=== PATIENT | female | born 1965 | race African-American/Black ===

== ENCOUNTER 2022-07-21 16:55 | Emergency (ER) | payer BC, SELFPAY ==
--- NOTE | ~2022-07-21 | CT_ITS ---
EXAMINATION: CT abdomen pelvis w con DATE: 07/21/2022 20:05 INDICATION: Left groin pain. TECHNIQUE: Computed tomography (CT) of the abdomen and pelvis was performed with 100 mL Omnipaque 350 intravenous contrast. Automated exposure control and iterative reconstruction technique were employe d. The dose-length product was 1238.03 mGy-cm. COMPARISON: None. FINDINGS: The visualized portions of the lung bases demonstrate mild atelectasis. No pleural effusion . The heart size is normal. No pericardial effusion. The liver, gallbladder, spleen, pancreas, adrena l glands, and left kidney are normal. There are cysts in right kidney measuring up to 7 mm. There are no dilated loops of bowel. The appendix is normal. There are no pathologically enlarged lymph nodes. There is no free intraperitoneal fluid. There are changes of posterior fusion procedure from L4 to S 1. There is mild osteoarthritis of the hips. IMPRESSION: 1. Mild osteoarthritis of the hips. 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
[2022-07-21 17:13] VITALS: BP 148/96; PULSE 75; RESP 16; TEMP 36.6; O2SAT 100
[2022-07-21 17:42] LABS: Basophils Percent Auto 0.3 % (0.2-1.2); Eosinophils Absolute Auto 0.3 K/mm3 (0-0.3); Eosinophils Percent Auto 2.3 % (0-4.4); Hematocrit 38.5 % (37.0-47.0); Immature Granulocyte Absolute 0.03 K/mm3 (0.00-0.031); Immature Granulocyte Percent A 0.3 % (0-0.5); Lymphocytes Percent Auto 38.3 % (18.3-44.2); Mean Corpuscular HGB Conc 31.2 g/dl (32-36); Mean Corpuscular Hemoglobin 26.8 pg (26-34); Mean Corpuscular Volume 85.9 fl (80-100); Mean Platelet Volume 9.5 fl (7.4-10.4); Monocytes Absolute Auto 0.5 K/mm3 (0.1-0.6); Monocytes Percent Auto 4.6 % (2.6-8.5); Neutrophils Absolute Auto 6.2 K/mm3 (1.3-6.7); Neutrophils Percent Auto 54.2 % (45.5-73.1); Platelet Count Result 295 k/mm3 (150-375); Red Blood Count 4.48 M/mm3 (4.2-5.4); Red Cell Distribution Width 14.9 % (11.5-14.5); White Blood Count 11.5 K/mm3 (4.5-10.0)
[2022-07-21 17:45] LABS: Appearance Urine Clear (Clear); Bilirubin Urine Negative (Negative); Blood Urine 1+ (Negative); Color Urine Yellow (Yellow); Glucose Urine UA Negative (Negative); Ketones Urine Trace mg/dL (Negative); Leukocyte Esterase Ur Negative LEU/UL (Negative); Nitrate Urine Negative (Negative); Protein Urine Trace mg/dL (Negative); Specific Grav Ur 1.025 (1.001-1.035); Urobilinogen Urine 0.2 mg/dL (<2.0); pH Urine 5.5 (5.0-9.0)
[2022-07-21 17:51] LABS: Bacteria Urine Trace /hpf; Calcium Oxalate Crystals Urine Many /hpf; Mucus Urine Few /lpf; RBC Urine 21-50 /hpf (0-2); Squamous Epithelial Cell Urine Many /hpf (Few)
[2022-07-21 17:53] LABS: Alanine Aminotransferase 16 U/L (6-35); Albumin Level 4.4 g/dL (3.5-5.1); Alkaline Phosphatase 111 U/L (38-126); Anion Gap 6 mmol/L (8-16); Aspartate Amino Transferase 23 U/L (14-36); Bilirubin,Total 0.3 mg/dL (0.2-1.3); Blood Urea Nitrogen 10 mg/dL (7-17); Calcium 9.1 mg/dL (8.4-10.2); Carbon Dioxide 27 mmol/L (22-30); Chloride 105 mmol/L (98-107); Estimated CRCL calculation 68 ml/min; Estimated Glomerular Filt Rate > 60; Glucose 103 mg/dL (65-110); Lipase 46 U/L (23-300); Potassium 3.4 mmol/L (3.4-5.0); Sodium 138 mmol/L (137-145)
[2022-07-21 17:58] LABS: Add Urine Microscopic? YES
[2022-07-21 18:31] VITALS: BP 128/84; PULSE 90; RESP 18; O2SAT 100
--- NOTE | 2022-07-21 18:39 | ED.ABDPAIN ---
HPI - Abdominal Pain General Chief Complaint: Abdominal Pain Stated Complaint: LLQ ABD PAIN Time Seen by Provider: 07/21/22 18:39 Source: patient and RN notes reviewed Limitations: no limitations History of Present Illness HPI narrative: Patient is 57 years old -[place] female came to the emergency room by private car complaining of left lower quadrant left groin left hip pain started last night, throbbing, worse with movement, better laying on the right side. She denies any fevers, chills, nausea, vomiting, trauma or new physical activity . Patient denies having similar symptoms in the past.. She denies any vaginal bleeding or discharge or urinary symptoms. Related Data Allergies Allergy/AdvReac Type Severity Reaction Status Date / Time acetaminophen Allergy Unknown Verified 07/21/22 18:34 [From Darvocet-N] propoxyphene Allergy Unknown Verified 07/21/22 18:34 [From Darvocet-N] Review of Systems Review of Systems: All systems reviewed & are unremarkable except as noted in HPI and below Exam Narrative: General appearance: Well-developed, well-nourished Skin: Normal color Head: Normocephalic, nontraumatic Eyes: Clear conjunctiva ENT: Oropharynx normal, ears normal, nose normal Neck: Supple, nontender Chest and respiratory: Airway patent, no respiratory distress, no accessory muscle use Heart: Regular rate/rhythm Abdomen: Soft, nontender, no organomegaly, quiet bowel sounds Vascular: Normal peripheral pulses, normal capillary refill. Musculoskeletal: Limited range of motion of left hip, no bruises, no swelling, no rash, no lymphadenopathy. Neurologic: Alert and oriented ?3, REJECT OPENER is normal as tested, no gross motor deficit Course Vital Signs Vital signs: Vital Signs Temperature 36.6 C 07/21/22 17:13 Pulse Rate 75 07/21/22 17:13 Respiratory Rate 16 07/21/22 17:13 Blood Pressure 148/96 H 07/21/22 17:13 Pulse Oximetry 100 07/21/22 17:13 Oxygen Delivery Room Air 07/21/22 17:13 Temperature 36.6 C 07/21/22 17:13 Pulse Rate 75 07/21/22 17:13 Respiratory Rate 16 07/21/22 17:13 Blood Pressure 148/96 H 07/21/22 17:13 Pulse Oximetry 100 07/21/22 17:13 Oxygen Delivery Room Air 07/21/22 17:13 MDM - Abdominal Pain MDM Narrative Medical decision making narrative: Patient presents with pain at the left lower quadrant left groin left hip started last night patient is pointing to her left groin area. No trauma, better if she lay down on the right side of her body. Physical examination showed slight limited range of motion of the left hip because of pain, otherwise no bruises, no swelling, no lymphadenopathy, no rash no localized tenderness. Differential diagnosis: Musculoskeletal, kidney stone, urinary tract infection, arthritis, diverticulitis. Labs, CRP, sed rate, UA, CT abdomen pelvis and left hip with contrast ordered. Patient received 1 L of normal saline, 0.5 mg of Dilaudid, 4 mg of Zofran with good improvement. Blood work-up showed leukocytosis of 11.7, possible secondary to infection versus reactive leukocytosis, UA showed hematuria. CT abdomen and pelvis with left hip showed no acute abnormality. My plan to discharge patient on Cipro, naproxen and Flexeril for possible urinary tract infection versus musculoskeletal pain. The pt was discharged to home.the pt,s condition upon discharge was fair,education was provided to the pt in reference to the final impression,discharge study results,treatment,prognosis and need for follow up . Differential Diagnosis Differential diagnosis: Likely abdominal pain, calculus of kidney, constipation, diverticulitis and other (Nontraumatic left hip pain) Lab Jamie
[2022-07-21] MEDS: HYDROmorphone HCL INJ (*CRX) 1 MG/ML SYR 0.5 MG IV PUSH (19:42)
[2022-07-21] MEDS: ONDANSETRON INJ 4 MG/2 ML VIAL IV PUSH (19:42)
--- NOTE | 2022-07-21 19:55 | PC.NURSE ---
Pt to ct scan
[2022-07-21 20:14] LABS: CRP 0.8 mg/dL (<1.0)
[2022-07-21 21:14] VITALS: BP 121/62; PULSE 83; RESP 18; O2SAT 100
[2022-07-21 21:16] LABS: Erythrocyte Sedimentation Rate 35 mm/hr (0-20)
== END 2022-07-21 21:15 | disposition home or self-care (01) ==
PROVIDERS: Emergency Medicine; Emergency Provider Emergency Medicine
DX: D72.829 Elevated white blood cell count, unspecified (principal); R31.9 Hematuria, unspecified; M16.0 Bilateral primary osteoarthritis of hip
CPT/HCPCS: 36415; 74177; 80053; 81001; 83690; 85025; 85652; 86140; 87086; 87088; 96374; 96375; 99284; J1170; J2405; Q9967

== ENCOUNTER 2023-07-16 01:35 | Day surgery (SDC) | payer BC, SELFPAY ==
[2023-07-10 12:28] VITALS: BMI 40.1
--- NOTE | 2023-07-16 06:45 | WPDANESEPPF ---
Anes - Initial Pre Proc Eval Procedure: Operation Date: 07/16/23 08:30 Proposed Procedures p Screening Colonoscopy - Mario Murray MD Date/Time: 07/16/23 06:45 Surgeon: Mario Murray MD Pre Op Diagnosis: neoplasm screening Patient Data Age: 58 Gender: F Height: 1.63 m Weight: 106.25 kg Allergies Allergy/AdvReac Type Severity Reaction Status Date / Time propoxyphene Allergy Unknown Verified 07/16/23 07:20 [From [facility]] Home Medications Medication Instructions Recorded Confirmed Type albuterol sulfate 90 mcg/actuation 2 puff inhalation Q4-6H PRN 07/10/23 07/16/23 History aerosol inhaler Shortness Of Breath amlodipine 10 mg-olmesartan 40 mg 1 tablet PO DAILY 07/10/23 07/16/23 History tablet budesonide-formoterol HFA 160 2 puff inhalation BID 07/10/23 07/16/23 History mcg-4.5 mcg/actuation aerosol inhaler (Symbicort) bupropion HCl 150 mg 24 hr tablet, 150 mg PO DAILY 07/10/23 07/16/23 History extended release duloxetine 30 mg capsule,delayed 30 mg PO BID 07/10/23 07/16/23 History release hydroxyzine HCl 25 mg tablet 25 mg PO HS PRN Insomnia 07/10/23 07/16/23 History levothyroxine 50 mcg tablet 50 mcg PO DAILY 07/10/23 07/16/23 History montelukast 10 mg tablet 10 mg PO DAILY 07/10/23 07/16/23 History ondansetron HCl 4 mg tablet 4 mg PO Q8H PRN Nausea 07/10/23 07/16/23 History pregabalin 50 mg capsule 50 mg PO Q8H PRN ARTHRITIS 07/10/23 07/16/23 History rimegepant 75 mg disintegrating 75 mg PO DAILY PRN Migraine 07/10/23 07/16/23 History tablet (Nurtec ODT) Headache rizatriptan 10 mg disintegrating 10 mg PO PRN PRN MIGRAINES 07/10/23 07/16/23 History tablet rosuvastatin 20 mg tablet 20 mg PO DAILY 07/10/23 07/16/23 History tizanidine 2 mg tablet 2 mg PO Q8H PRN Muscle Pain 07/10/23 07/16/23 History Patient hx anesthesia problems: none Family hx anesthesia problems: none Results Review: All pre-operative results and documents have been reviewed as part of the pre-operative evaluation. [facility] Past Medical History Medical History (Updated 07/16/23 @ 06:46 by Wellington Lizama DO) Anxiety Asthma Depression Diabetes type 2, controlled Hyperlipidemia Hypertension Hypothyroidism FAVIOLA (obstructive sleep apnea) Social History Social History Smoking status: Never smoker Alcohol intake: never Substance use: never Substance use type: does not use Living arrangements: with family Spiritual care concerns: No Anes - Eval Final PreProcedure Day of Procedure 07/16/23 06:45 Patient weight: morbidly obese Heart: regular rate and rhythm Lungs: clear to auscultation Airway: Mallampati scale class II Neurological: alert and oriented Last oral intake: >/= 8 hours ASA classification: III Emergent: no Anesthetic plan: proceed Anesthesia type and monitoring: general GIVS and standard monitoring Results Review: All pre-operative results and documents have been reviewed as part of the pre-operative evaluation. Informed Consent: The patient's anesthetic plan and its attendant risks and benefits were discussed with the patient/family/POA. Questions were solicited and answers provided to the satisfaction of the patient/family/POA.
[2023-07-16 07:21] VITALS: BP 145/84; PULSE 96; RESP 17; TEMP 36.2; O2SAT 99; BMI 39.0
[2023-07-16] MEDS: LACTATED RINGERS 1,000 ML 150 ML IV CONT (07:38)
--- NOTE | 2023-07-16 08:19 | PM.HPGS ---
History of Present Illness History of Present Illness Consent: Risks, benefits, and alternatives have been discussed and questions answered. Patient agrees to proceed with procedure. Chief complaint: neoplasm screening Narrative: Roxie Bedolla is a 58 year old female here for screening colonoscopy, had one about 10 years ago Review of Systems Constitutional: Constitutional: Denies headache(s) and Denies weakness Eyes: Eyes: Denies blurry vision ENT: Reports Normal hearing present, Denies headache(s) and Denies neck pain Cardiovascular: Cardiovascular: Denies chest pain and Denies dyspnea Respiratory: Respiratory: Denies dyspnea Gastrointestinal: Gastrointestinal: Reports no additional gastrointestinal complaints Genitourinary: Genitourinary: Denies dysuria Musculoskeletal: Musculoskeletal: Denies neck pain Integumentary/Breasts: Skin/Breast: Denies dry skin Neurologic: Reports Normal hearing present, Denies headache(s) and Denies weakness Psychiatric: Psychiatric: Denies anxiety Endocrine: Endocrine: Denies change in body appearance Hematologic/Lymphatic: Hematologic/Lymphatic: Denies easy bleeding Allergic/Immunologic: Allergic/Immunologic: Denies urticaria PMFSH Past Medical History Medical History (Updated 07/16/23 @ 08:19 by Mario Murray MD) Anxiety Asthma Colon cancer screening Depression Diabetes type 2, controlled Hyperlipidemia Hypertension Hypothyroidism FAVIOLA (obstructive sleep apnea) Social History Social History Smoking status: Never smoker Alcohol intake: never Substance use: never Substance use type: does not use Living arrangements: with family Spiritual care concerns: No Meds Home Medications and Allergies Home Medications Medication Instructions Recorded Confirmed Type albuterol sulfate 90 mcg/actuation 2 puff inhalation Q4-6H PRN 07/10/23 07/16/23 History aerosol inhaler Shortness Of Breath amlodipine 10 mg-olmesartan 40 mg 1 tablet PO DAILY 07/10/23 07/16/23 History tablet budesonide-formoterol HFA 160 2 puff inhalation BID 07/10/23 07/16/23 History mcg-4.5 mcg/actuation aerosol inhaler (Symbicort) bupropion HCl 150 mg 24 hr tablet, 150 mg PO DAILY 07/10/23 07/16/23 History extended release duloxetine 30 mg capsule,delayed 30 mg PO BID 07/10/23 07/16/23 History release hydroxyzine HCl 25 mg tablet 25 mg PO HS PRN Insomnia 07/10/23 07/16/23 History levothyroxine 50 mcg tablet 50 mcg PO DAILY 07/10/23 07/16/23 History montelukast 10 mg tablet 10 mg PO DAILY 07/10/23 07/16/23 History ondansetron HCl 4 mg tablet 4 mg PO Q8H PRN Nausea 07/10/23 07/16/23 History pregabalin 50 mg capsule 50 mg PO Q8H PRN ARTHRITIS 07/10/23 07/16/23 History rimegepant 75 mg disintegrating 75 mg PO DAILY PRN Migraine 07/10/23 07/16/23 History tablet (Nurtec ODT) Headache rizatriptan 10 mg disintegrating 10 mg PO PRN PRN MIGRAINES 07/10/23 07/16/23 History tablet rosuvastatin 20 mg tablet 20 mg PO DAILY 07/10/23 07/16/23 History tizanidine 2 mg tablet 2 mg PO Q8H PRN Muscle Pain 07/10/23 07/16/23 History Allergies Allergy/AdvReac Type Severity Reaction Status Date / Time propoxyphene Allergy Unknown Verified 07/16/23 07:20 [From [facility]] Vital Signs Vital Signs - 24 hr 07/16/23 07:21 Temperature 97.1 F L Pulse Rate 96 Respiratory Rate 17 Blood Pressure 145/84 H Pulse Oximetry 99 Oxygen Delivery Room Air Exam Const: General: comfortable and no acute distress HENMT: Face/Nose/Sinus: Normal nares present Eyes: General: appearance normal, both eyes and all related structures Neck: Neck: no JVD Resp: Auscultation: clear to auscultation bilaterally Cardio: Rate: regular rate Rhythm: regular rhythm GI: Inspection: non-distended GI Palp: Yes Soft to palpation Skin: General skin exam: normal color Neuro: General: gait normal Speech: normal spe
[2023-07-16 08:40] VITALS: BP 110/67; PULSE 81; RESP 26; O2SAT 99
[2023-07-16 08:50] VITALS: BP 124/73; PULSE 80; RESP 21; O2SAT 98
[2023-07-16 09:03] VITALS: BP 130/80; PULSE 74; RESP 17; O2SAT 100
== END 2023-07-16 09:04 | disposition home or self-care (01) ==
PROVIDERS: Visit Provider Internal Medicine Gastroenterology
PROC: 0DJD8ZZ Inspection of Lower Intestinal Tract, Via Natural or Artificial Opening Endoscopic (ICD-10-PCS; CPT 45378; principal; 2023-07-16 08:30)
DX: Z12.11 Encounter for screening for malignant neoplasm of colon (principal); I10 Essential (primary) hypertension; E78.5 Hyperlipidemia, unspecified; E03.9 Hypothyroidism, unspecified; E11.9 Type 2 diabetes mellitus without complications; J45.909 Unspecified asthma, uncomplicated; G47.33 Obstructive sleep apnea (adult) (pediatric); F41.9 Anxiety disorder, unspecified; F32.A Depression, unspecified; Z79.51 Long term (current) use of inhaled steroids; E66.01 Morbid (severe) obesity due to excess calories; Z68.39 Body mass index [BMI] 39.0-39.9, adult
CPT/HCPCS: 45378; J2704; J7120

== ENCOUNTER 2023-07-23 16:04 | Outpatient (CLI) | payer MEDICARE, BC, SELFPAY ==
--- NOTE | ~2023-07-23 | MR_ITS ---
EXAMINATION: MR cervical spine wo con DATE: 07/23/2023 16:36 INDICATION: Neck pain. TECHNIQUE: Magnetic resonance imaging (MRI) of the cervical spine was performed without intravenous c ontrast. COMPARISON: None FINDINGS: There is 2 mm retrolisthesis of C5 on C6. Vertebral body heights are normal. There is mildl y decreased disc height at C4-C5, severely decreased disc height at C5-C6, and mildly decreased disc height at C6-C7. The spinal cord signal intensity is normal. The following disc levels are specifical ly discussed: C2-C3: The disc does not extend beyond the endplate margin. There is no uncovertebral joint osteoarth ritis. There is severe right and mild left facet joint osteoarthritis. There is no neural foraminal s tenosis. There is no central canal stenosis. C3-C4: There is a central extrusion. There is moderate right and severe left uncovertebral joint oste oarthritis. There is moderate right and severe left facet joint osteoarthritis. There is mild bilater al neural foraminal stenosis. There is mild central canal stenosis. C4-C5: There is a central protrusion. There is mild bilateral uncovertebral joint osteoarthritis. The re is severe bilateral facet joint osteoarthritis. There is mild bilateral neural foraminal stenosis. There is mild central canal stenosis. C5-C6: The disc is bulging. There is severe bilateral uncovertebral joint osteoarthritis. There is mi ld bilateral facet joint osteoarthritis. There is moderate bilateral neural foraminal stenosis. There is moderate central canal stenosis with ventral and dorsal indentation of the spinal cord. C6-C7: The disc is bulging. There is moderate bilateral uncovertebral joint osteoarthritis. There is severe bilateral facet joint osteoarthritis. There is mild bilateral neural foraminal stenosis. There is mild central canal stenosis. C7-T1: The disc does not extend beyond the endplate margin. There is no uncovertebral joint osteoarth ritis. There is severe right and moderate left facet joint osteoarthritis. There is mild bilateral ne ural foraminal stenosis. There is no central canal stenosis. IMPRESSION: 1. Severe spondylosis at C5-C6 and mild spondylosis at other levels. 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
== END 2023-07-23 16:05 ==
LOC: MICIMG 16:05
PROVIDERS: PCP Nurse Practitioner Family; Visit Provider Nurse Practitioner Family
DX: M47.812 Spondylosis without myelopathy or radiculopathy, cervical region (principal)
CPT/HCPCS: 72141